=== PATIENT | male | born 1940 | race Caucasian/White ===

== ENCOUNTER 2019-12-10 09:43 | Outpatient (CLI) | payer MEDICARE, SELFPAY ==
--- NOTE | 2019-12-10 11:30 | NEURO_ITS ---
Patient Number: [id number] Impression: # Complains of numbness of hands. # Bilateral Carpal Tunnel Syndrome, right more than left. # No ulnar neuropathy. # Normal needle/EMG exam. Nerve Conduction Studies Anti Sensory Summary Table Stim Site NR Peak (ms) P-T Amp (?V) Site1 Site2 Delta-P (ms) Dist (cm) Tristen (m/s) Left Median Anti Sensory (2-3nd Digit) Wrist 4.3 5.3 Wrist 2-3nd Digit 4.3 14.0 33 Wrist 4.8 4.8 Wrist 2-3nd Digit 4.3 14.0 33 Right Median Anti Sensory (2-3nd Digit) Wrist 5.4 15.5 Wrist 2-3nd Digit 5.4 14.0 26 Wrist 5.8 13.8 Wrist 2-3nd Digit 5.4 14.0 26 Left Radial Anti Sensory (Base 1st Digit) Wrist 1.9 16.2 Wrist Base 1st Digit 1.9 0.0 Right Radial Anti Sensory (Base 1st Digit) Wrist 2.4 14.0 Wrist Base 1st Digit 2.4 0.0 Left Ulnar Anti Sensory (5th Digit) Wrist 3.1 32.2 Wrist 5th Digit 3.1 14.0 45 Right Ulnar Anti Sensory (5th Digit) Wrist 3.0 40.5 Wrist 5th Digit 3.0 14.0 47 Motor Summary Table Stim Site NR Onset (ms) O-P Amp (mV) Site1 Site2 Delta-0 (ms) Dist (cm) Tristen (m/s) Left Median Motor (Abd Poll Brev) Wrist 4.4 1.2 Elbow Wrist 5.4 30.0 56 Elbow 9.8 1.0 Right Median Motor (Abd Poll Brev) Wrist 4.5 1.8 Elbow Wrist 5.4 29.0 54 Elbow 9.9 1.0 Left Ulnar Motor (Abd Dig Minimi) Wrist 2.7 4.7 A Elbow Wrist 5.4 29.0 54 A Elbow 8.1 3.6 Right Ulnar Motor (Abd Dig Minimi) Wrist 3.0 5.4 A Elbow Wrist 5.8 31.0 53 A Elbow 8.8 4.0 F Wave Studies NR F-Lat (ms) L-R F-Lat (ms) Left Median (Mrkrs) (Abd Poll Brev) 31.09 0.27 Right Median (Mrkrs) (Abd Poll Brev) 31.35 0.27 Left Ulnar (Mrkrs) (Abd Dig Min) 31.41 1.51 Right Ulnar (Mrkrs) (Abd Dig Min) 32.91 1.51 EMG Side Muscle Nerve Root Ins Act Fibs Amp Dur Recrt Comment Right 1stDorInt Ulnar C8-T1 Nml Nml Nml Nml Nml Right Ext Indicis Radial (Post Int) C7-8 Nml Nml Nml Nml Nml Right Ext Digitorum Radial (Post Int) C7-8 Nml Nml Nml Nml Nml Right BrachioRad Radial C5-6 Nml Nml Nml Nml Nml Right PronatorTeres Median C6-7 Nml Nml Nml Nml Nml Right Abd Poll Brev Median C8-T1 Nml Nml Nml Nml Nml Left 1stDorInt Ulnar C8-T1 Nml Nml Nml Nml Nml Left Ext Indicis Radial (Post Int) C7-8 Nml Nml Nml Nml Nml Left Ext Digitorum Radial (Post Int) C7-8 Nml Nml Nml Nml Nml Left BrachioRad Radial C5-6 Nml Nml Nml Nml Nml Left PronatorTeres Median C6-7 Nml Nml Nml Nml Nml Left Abd Poll Brev Median C8-T1 Nml Nml Nml Nml Nml Right ABD Dig Min Ulnar C8-T1 Nml Nml Nml Nml Nml Left ABD Dig Min Ulnar C8-T1 Nml Nml Nml Nml Nml MTDD
== END 2019-12-10 09:44 | disposition home or self-care (01) ==
PROVIDERS: PCP Family Medicine; Visit Provider Family Medicine
DX: R20.0 Anesthesia of skin (principal); G56.03 Carpal tunnel syndrome, bilateral upper limbs
CPT/HCPCS: 95886; 95911

== ENCOUNTER 2020-05-21 11:22 | Emergency (ER) | payer MEDICARE, SELFPAY ==
[2020-05-21 11:27] VITALS: BP 107/51; PULSE 72; RESP 15; TEMP 36.8; O2SAT 95
--- NOTE | 2020-05-21 11:28 | ED.DIZZY ---
HPI - Dizziness General Chief Complaint: Dizziness Stated Complaint: Dizzy History of Present Illness HPI Narrative: 79 yo presents from home for dizziness and congestion. He reports that he has had some mild congestion for the past few days. This morning the congestion was worse. Exacerbated by lying down. He also had some dizziness, which he is not able to further characterize. This has resolve. He also reports a mild posterior headache. He had his second COVID-19 vaccination yesterday. Related Data Allergies Allergy/AdvReac Type Severity Reaction Status Date / Time Penicillins Allergy Unknown Unknown Verified 05/21/20 11:30 Review of Systems Review of Systems: All systems reviewed & are unremarkable except as noted in HPI and below Constitutional: Constitutional: Denies chills, Denies fever(s) and Denies weakness Eyes: Eyes: Reports no additional eye complaints ENT: Reports dizziness, Reports nasal congestion and Denies sore throat Cardiovascular: Cardiovascular: Denies chest pain Respiratory: Respiratory: Denies dyspnea Gastrointestinal: Gastrointestinal: Denies abdominal pain and Denies nausea Musculoskeletal: Musculoskeletal: Reports myalgias Neurologic: Reports dizziness, Denies syncope, Reports headache(s) and Denies weakness [facility] Past Medical History Medical History 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 Surgical History Surgical History Chronic neck pain with history of cervical spinal surgery Status post bilateral hip replacements Status post knee replacement Family History Family History Father Family history of Alzheimer's disease Social History Social History Years smoked: 30 Smoking status: Former smoker Tobacco type: cigarettes and cigars Second hand tobacco smoke exposure: No Smoking end date: 03/19/76 Alcohol intake: never Substance use: never Substance use type: does not use Gender identity (if verbalized by the patient): Male Exam Const: General: no acute distress and alert Orientation/consciousness: patient oriented x3 HENMT: Head: normal to inspection Ears: Abnormal EAC present cerumen impaction on the right and external ear abnormal Face and sinus: sinuses nontender Eyes: Conjunctivae: conjunctivae normal Pupils: Equal, round and reactive pupils present EOM: EOMs intact bilaterally Neck: Neck: normal visual inspection and no lymphadenopathy Chest: Chest palpation & inspection: no tenderness Resp: Effort & Inspection: normal respiratory effort Auscultation: clear to auscultation bilaterally, no rales, no rhonchi and no wheezes Cardio: Jugular venous distension: no JVD Rate: regular rate Rhythm: regular rhythm Heart sounds: no murmurs GI: Inspection: non-distended GI Palp: Yes Soft to palpation and No Tenderness to palpation present (GI) Skin: General skin exam: normal color Neuro: General: patient oriented x3, moves all extremities, no focal motor deficits and CN's II-XI intact bilaterally Cranial nerves: Yes Nystagmus not present Speech: normal speech Extrem: General: no edema Psych: Appearance: well kempt Affect: normal affect Course Vital Signs Vital signs: Vital Signs Temperature 36.8 C 05/21/20 11:27 Pulse Rate 72 05/21/20 11:27 Respiratory Rate 15 05/21/20 11:27 Blood Pressure 107/51 L 05/21/20 11:27 Pulse Oximetry 95 05/21/20 11:27 Temperature 36.8 C 05/21/20 11:27 Pulse Rate 63 05/21/20 12:00 Respiratory Rate 16 05/21/20 12:00 Blood Pressure 103/60 05/21/20 12:00 Pulse Oximetry 94 05/21/20 12:00 MDM - Dizziness Differential Diagnosis Differential diagnosis: Likely benign paroxysmal positional vertigo and other (vaccine reaction, dehydrat
--- NOTE | 2020-05-21 11:43 | ECG_ITS ---
Measurements Intervals [place] Rate: 68 P: 47 NH: 224 QRS: -54 QRSD: 137 T: 78 QT: 390 QTc: 415 Interpretive Statements SINUS RHYTHM WITH FIRST DEGREE AV BLOCK LEFT AXIS DEVIATION INTRAVENTRICULAR CONDUCTION DELAY DELAYED PRECORDIAL R/S TRANSITION BORDERLINE ST-T WAVE ABNORMALITY- HIGH LATERAL LEADS ABNORMAL ECG Electronically Signed On 05-21-2020 11:50:02 HEALTH BENEFITS SPECIALIST by Clay Segura D.O.
[2020-05-21] MEDS: ACETAMINOPHEN 500 MG TABLET 1000 MG PO (11:45)
[2020-05-21] MEDS: SODIUM CHLORIDE 0.9% IV 500 ML 999 ML IV CONT (11:45)
[2020-05-21] MEDS: MECLIZINE HCL 25 MG TABLET PO (11:45)
[2020-05-21 11:50] LABS: Basophils Absolute Auto 0.1 K/mm3 (0.0-0.1); Basophils Percent Auto 0.7 % (0.2-1.2); Eosinophils Absolute Auto 0.3 K/mm3 (0-0.3); Eosinophils Percent Auto 4.2 % (0-4.4); Hematocrit 38.2 % (42.0-52.0); Hemoglobin 12.6 g/dL (14.0-18.0); Immature Granulocyte Absolute 0.02 K/mm3 (0.00-0.031); Immature Granulocyte Percent A 0.3 % (0-0.5); Lymphocytes Absolute Auto 1.34 K/mm3 (0.9-3.2); Lymphocytes Percent Auto 20.1 % (18.3-44.2); Mean Platelet Volume 9.6 fl (7.4-10.4); Monocytes Absolute Auto 0.5 K/mm3 (0.1-0.6); Neutrophils Absolute Auto 4.5 K/mm3 (1.3-6.7); Neutrophils Percent Auto 67.7 % (45.5-73.1); Platelet Count Result 275 k/mm3 (150-375); Red Cell Distribution Width 13.2 % (11.5-14.5); White Blood Count 6.7 K/mm3 (4.5-10.0)
[2020-05-21 12:00] VITALS: BP 103/60; PULSE 63; RESP 16; O2SAT 94
[2020-05-21 12:02] LABS: Anion Gap 5 mmol/L (8-16); Blood Urea Nitrogen 17 mg/dL (9-20); Calcium 8.5 mg/dL (8.4-10.2); Carbon Dioxide 25 mmol/L (22-30); Chloride 107 mmol/L (98-107); Estimated CRCL calculation 52 ml/min; Estimated Glomerular Filt Rate 58; Glucose 137 mg/dL (75-110); Potassium 4.5 mmol/L (3.4-5.0); Sodium 137 mmol/L (137-145)
[2020-05-21 12:30] VITALS: BP 101/52; PULSE 64; RESP 16; O2SAT 94
[2020-05-21 13:08] VITALS: BP 96/60; PULSE 62; RESP 16; O2SAT 96
== END 2020-05-21 13:33 | disposition home or self-care (01) ==
PROVIDERS: Emergency Provider Emergency Medicine; PCP Family Medicine
DX: R42 Dizziness and giddiness (principal); H61.21 Impacted cerumen, right ear; I11.9 Hypertensive heart disease without heart failure; Z96.643 Presence of artificial hip joint, bilateral; Z96.659 Presence of unspecified artificial knee joint; Z87.891 Personal history of nicotine dependence; I44.0 Atrioventricular block, first degree; I45.9 Conduction disorder, unspecified; R94.31 Abnormal electrocardiogram [ECG] [EKG]
CPT/HCPCS: 36415; 69209; 80048; 85025; 93005; 96360; 99283; A9270; J7040

== ENCOUNTER 2021-04-27 12:39 | Emergency (ER) | payer MEDICARE, SELFPAY ==
--- NOTE | ~2021-04-27 | XR_ITS ---
EXAMINATION: XR cervical spine 4-5V EXAM DATE: 04/27/2021 14:19 INDICATION: posterior neck pain s/p fall 4 days ago. Initial encounter. TECHNIQUE: Cervical spine frontal, lateral, lateral swimmers, and open-mouth odontoid projections. C omparison is made to prior examination from 08/26/2010. FINDINGS: There are no acute fractures identified. There is mild reversal of the normal cervical lord osis which may be positional degenerative, or spasm, similar appearance on prior study 2010. Cervical fusion hardware at C6-7. Large endplate osteophytes from C3-5. The odontoid process is intact. The lateral masses of C1 line up with C2. Prevertebral soft tissue and pre-dens space are within normal l imits. Lung apices are clear. Paraspinal soft tissue is unremarkable. Osseous fusion of the C5-6 vert ebral bodies. Moderate to severe cervical arthropathy. IMPRESSION: 1. Mild reversal normal cervical lordosis. 2. Moderate to severe arthropathy. 3. Intact fusion, no fracture suspected. Reviewed, dictated and finalized at location B. R SHAPER
[2021-04-27 12:50] VITALS: BP 119/48; PULSE 80; RESP 16; TEMP 36.7; O2SAT 99
--- NOTE | 2021-04-27 13:55 | ED.NECK ---
HPI - Neck Pain/Injury General Chief Complaint: Neck Pain/Injury Stated Complaint: neck pain Time Seen by Provider: 04/27/21 13:55 Source: patient and RN notes reviewed Mode of arrival: ambulatory Limitations: no limitations History of Present Illness HPI Narrative: 80-year-old male presented for complaint of posterior lower neck pain for approximately 4 days. Pain worse with flexion/extension. He states he had a fall at the onset, fell forward off of a curb into the snow landing on his outstretched hands. He denies hitting his head or loss of consciousness. He was seen by his PCP yesterday who instructed him to get evaluated with an x-ray. He denies increased pain with turning his head, endorses full range of motion to his arms, denies numbness, tingling, weakness to the upper extremities. He endorses a history of multiple left-sided fractures at age 35, takes tramadol daily. Related Data Home Medications Medication Instructions Recorded Confirmed qtwvromg-dwh-bjyft acid 300 1 tablet PO DAILY 09/28/20 04/27/21 mcg-lycopene 600 mcg-lutein 300 mcg tablet Allergies Allergy/AdvReac Type Severity Reaction Status Date / Time Penicillins Allergy Unknown Unknown Verified 04/27/21 12:42 Review of Systems Review of Systems: CONSTITUTIONAL: Denies body aches, fever, chills, or sweats. EYES: Denies visual changes, redness, or discharge. ENT: Denies rhinorrhea, congestion, sore throat, or otalgia. CARDIOVASCULAR: Denies chest pain, palpitations, or edema. RESPIRATORY: Denies cough or dyspnea. GASTROINTESTINAL: Denies abdominal pain, nausea, vomiting, or diarrhea. GENITOURINARY: Denies dysuria or hematuria. SKIN: Denies rash, itching, or wounds. MUSCULOSKELETAL: Endorses neck pain NEUROLOGIC: Denies headache, numbness, tingling, or weakness. PSYCH: Denies depression or anxiety. All systems reviewed & are unremarkable except as noted in HPI and below PMFSH Past Medical History Medical History 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 Surgical History Surgical History Chronic neck pain with history of cervical spinal surgery Status post bilateral hip replacements Status post knee replacement Family History Family History Father Family history of Alzheimer's disease Social History Social History Years smoked: 30 Tobacco type: cigarettes and cigars Second hand tobacco smoke exposure: No Smoking end date: 03/19/76 Alcohol intake: never Substance use: never Substance use type: does not use Gender identity (if verbalized by the patient): Male Sexual Orientation (if Verbalized by the Patient): Straight or Heterosexual Comments At time of signature, I have reviewed and agree with nursing past medical, surgical, social and family history unless otherwise noted. Please see nursing chart for further information. There is no relevant family history pertinent to the presenting complaint Exam Narrative: GENERAL: Well-appearing, well-nourished, and in no acute distress. HEAD: Normocephalic, atraumatic. EYES: EOMI. No redness or drainage. Conjunctivae normal. ENT: Mucous membranes pink and moist. NECK: Normal AROM but endorses pain with flexion/extension. Supple. CHEST: No respiratory distress. Clear to auscultation. HEART: Regular rate and rhythm. No murmur appreciated. Normal peripheral pulses. ABDOMEN: Soft, nontender, nondistended, normal active bowel sounds. MUSCULOSKELETAL:No vertebral point tenderness or paraspinal tenderness with palpation; pain reported with flexion/extension of neck at c6-7 EXTREMITIES: Normal range of motion. No edema. Institution Director equal strong SKIN: Warm, dry, no rash. Capillary refill normal. Normal skin turgor. NEURO: No focal deficits
== END 2021-04-27 15:01 | disposition home or self-care (01) ==
PROVIDERS: Emergency Provider Nurse Practitioner Family; PCP Family Medicine
DX: M54.2 Cervicalgia (principal); Z87.891 Personal history of nicotine dependence; I11.9 Hypertensive heart disease without heart failure; Z96.643 Presence of artificial hip joint, bilateral; Z96.659 Presence of unspecified artificial knee joint
CPT/HCPCS: 72050; 99213; G0463

== ENCOUNTER 2021-08-17 13:49 | Outpatient (CLI) | payer MEDICARE, SELFPAY ==
--- NOTE | ~2021-08-17 | XR_ITS ---
EXAMINATION: XR hip LT min 3V w AP pelvis DATE: 08/17/2021 14:29 INDICATION: Left hip pain TECHNIQUE: Anteroposterior view of the pelvis and anteroposterior, frog leg and cross-table lateral v iews of the left hip were obtained. COMPARISON: None. FINDINGS: No acute fracture. Bipolar type left hip hemiarthroplasty which appears well seated in the femur with no periprosthetic lucency to suggest loosening. There is however osteolysis and remodeling of the sainz perior left acetabulum with likely secondary superolateral migration of the femoral head component of the hemiarthroplasty with significant lateral uncovering of the head of the component. Lucency overl rivera the lateral margin of the remodeled acetabulum likely representing prominent synovitis versus cy stic change. A couple large heterotopic ossifications extending between the greater trochanter and th e lateral margin of the acetabulum. Additional heterotopic ossification in the soft tissues along the medial aspect of the proximal femoral diaphysis. Mild right hip osteoarthritis. Moderate to severe l ower lumbar spondylosis. IMPRESSION: 1. Left total hip arthroplasty with osteolysis and remodeling of the superior superolateral left acet abulum resulting in significant superolateral migration of the femoral head component of the hemiarth roplasty but without kayla dislocation. Reviewed, dictated and finalized at location B. IMPRESSION: 1. Left total hip arthroplasty with osteolysis and remodeling of the superior s uperolateral left acetabulum resulting in significant superolateral migration o f the femoral head component of the hemiarthroplasty but without kayla dislocat ion.
--- NOTE | ~2021-08-17 | XR_ITS ---
EXAMINATION: XR knee LT min 4V DATE: 08/17/2021 14:29 INDICATION: Left knee pain. TECHNIQUE: 4 views of left knee were obtained. COMPARISON: Left knee radiographs 08/11/2009 FINDINGS: There is a total left knee arthroplasty in near-anatomic alignment. No periprosthetic lucen cy to suggest loosening or infection. Partially visualized is an old healed fracture of femoral diaph ysis. Again seen is a small bone fragment in the expected area of patella. No knee joint effusion. IMPRESSION: 1. Total left knee arthroplasty in near-anatomic alignment. Reviewed, dictated and finalized at location A.
== END 2021-08-17 13:50 | disposition home or self-care (01) ==
PROVIDERS: PCP Family Medicine; Visit Provider Physician Assistant
DX: M47.816 Spondylosis without myelopathy or radiculopathy, lumbar region (principal); M16.11 Unilateral primary osteoarthritis, right hip; Z96.652 Presence of left artificial knee joint
CPT/HCPCS: 73502; 73564

== ENCOUNTER 2022-09-14 20:45 | Emergency (ER) | payer MEDICARE, SELFPAY ==
--- NOTE | ~2022-09-14 | CT_ITS ---
EXAMINATION: CT brain wo con DATE: 09/14/2022 21:31 INDICATION: head injury . TECHNIQUE: Computed tomography (CT) of the head was performed without intravenous contrast. The mA wa s adjusted according to patient size. Iterative reconstruction technique was employed. The dose-lengt h product was 605.33 mGy-cm. COMPARISON: 09/17/2013. FINDINGS: No acute intracranial hemorrhage or extra-axial fluid collection. No hydrocephalus, mass, or herniation. No acute ischemic infarct. Unremarkable dural venous sinus attenuation. No acute osseous abnormality. Trace right mastoid fluid, bilateral inferior frontal, ethmoid, sphenoid and maxillary mucosal thicke grabiel, the remaining aerated spaces are clear. Moderate atrophy and mild chronic white matter change. Atherosclerotic intracranial calcification. Ri ght lens replacement IMPRESSION: No acute intracranial process. Reviewed, dictated and finalized at location K.
--- NOTE | ~2022-09-14 | CT_ITS ---
EXAMINATION: CT facial & cervical spine wo DATE: 09/14/2022 21:34 INDICATION: fall, trauma TECHNIQUE: Computed tomography (CT) of the maxillofacial region and cervical spine was performed with out intravenous contrast. Automated exposure control and iterative reconstruction technique were empl oyed. The dose-length product was 631.17 mGy-cm. COMPARISON: CT C-spine 09/17/2013; x-ray C-spine 04/27/2021 FINDINGS: CERVICAL: Vertebral Body Alignment: Reversed lordosis centered at C5-6. Stable 3 mm anterolistheses at C4-5 and C7-T1. Craniocervical and atlantoaxial alignment: Moderate degenerative change. Alignment intact. Osseous structures/fracture: No evidence of a lytic or blastic process in the visualized spine. No e vidence of acute fracture. Uncomplicated ACDF hardware at C6-7. Osseous fusion at C5-6. Cervical soft tissues: The paraspinal soft tissues planes are maintained. 2.1 cm left thyroid nodule with calcification. Dependent atelectasis. Left apical calcified granuloma. Degenerative changes: Degenerative changes, without severe neural foraminal or central canal narrowin g. Large bridging anterior osteophytes between C3 and C5, with pseudoarthrosis formation. FACE: Mild motion artifact. Soft Tissues: No significant superficial soft tissue swelling. Facial bones: No acute fracture. No lytic or blastic process. Eyes: The globes are intact. Right lens replacement. The soft tissue planes of the orbits are mainta ined. Paranasal Sinuses: Trace right mastoid fluid. Bilateral inferior frontal, ethmoid, sphenoid, and maxi llary sinus mucosal thickening. Foreign Bodies: No radiopaque foreign bodies. Other Findings: None. IMPRESSION: No acute fracture or traumatic malalignment in the cervical spine. No acute facial bone fracture. 2.1 cm calcified left thyroid nodule, consider outpatient thyroid ultrasound for further characteriza tion. Reviewed, dictated and finalized at location K. IMPRESSION: No acute fracture or traumatic malalignment in the cervical spine. No acute fac ial bone fracture. 2.1 cm calcified left thyroid nodule, consider outpatient thyroid ultrasound fo r further characterization.
[2022-09-14 20:47] VITALS: BP 138/59; PULSE 76; RESP 18; TEMP 36.1; O2SAT 96
--- NOTE | 2022-09-14 21:58 | ED.FALL ---
HPI - Fall General Chief Complaint: Fall Stated Complaint: fall Time Seen by Provider: 09/14/22 20:48 History of Present Illness HPI Narrative: 81-year-old male presented emergency department for evaluation after a ground-level fall. Neighbor states that the patient was bending over to work with a garden hose and then stood and ultimately fell forward striking his face and arm on the rocks. Patient denies any loss of consciousness. Neighbors were there to help assist him to a lawn chair and EMS was called. Related Data Home Medications Medication Instructions Recorded Confirmed qzftmyih-fhk-wphyu acid 300 1 tablet PO DAILY 09/28/20 04/04/22 mcg-lycopene 600 mcg-lutein 300 mcg tablet (Men 50 Plus Multivitamin) Allergies Allergy/AdvReac Type Severity Reaction Status Date / Time Penicillins Allergy Unknown Unknown Verified 09/14/22 20:52 Review of Systems Review of Systems: All systems reviewed & are unremarkable except as noted in HPI and below PMFSH Past Medical History Medical History Obesity 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 Surgical History Surgical History Chronic neck pain with history of cervical spinal surgery Complication of artificial joint L JESSIE removal, abx spacer, ORIF Status post bilateral hip replacements Status post knee replacement Family History Family History Father Family history of Alzheimer's disease Social History Social History Years smoked: 30 Smoking status: Former smoker Tobacco type: cigarettes and cigars Second hand tobacco smoke exposure: No Smoking end date: 03/19/76 Alcohol intake: never Substance use: never Substance use type: does not use Living arrangements: with family Occupation/Education: retired Gender identity (if verbalized by the patient): Male Sexual Orientation (if Verbalized by the Patient): Straight or Heterosexual Exam Narrative: APPEARANCE: Well appearing, no pain, no distress, well-nourished. HEAD: normocephalic, contusions to nasal bridge and abrasions to forehead and nasal bridge. EYES: PERRLA/EOMI, conjunctivae clear. NOSE: Normal no drainage EARS:TMS clear with good light reflex. THROAT: Pharynx clear, no exudate. NECK: Supple. No adenopathy, no masses. RESPIRATORY: Airway patent, respirations nonlabored. Clear to auscultation bilaterally, no rales, rhonchi, wheezing. CARDIOVASCULAR: Regular rate and rhythm without murmurs rubs or gallops. ABDOMINAL: Soft, nontender, nondistended, normal bowel sounds MUSCULOSKELETAL: Moves all extremities. Strength/ROM intact, No edema, No calf tenderness. NEURO: Alert. Cranial nerves II through XII intact. Grossly intact SKIN: Extensive skin tear on the left forearm PSYCHIATRIC: Normal affect/mood. Course Course Emergency Course: 81-year-old male presented to ED for evaluation after having a ground-level fall. Patient did have multiple skin tears that were repaired. Patient had head face and neck CTs ordered due to to the fall. No acute abnormalities were noted. Patient denies any complaints and was able to ambulate at his baseline. Patient and family were updated on the results of the work-up and treatment plan. All questions and concerns were addressed. Patient was well-appearing at time of discharge. Vital Signs Vital signs: Vital Signs Temperature 97 F L 09/14/22 20:47 Pulse Rate 76 09/14/22 20:47 Respiratory Rate 18 09/14/22 20:47 Blood Pressure 138/59 L 09/14/22 20:47 Pulse Oximetry 96 09/14/22 20:47 Oxygen Delivery Room Air 09/14/22 20:47 Temperature 98 F 09/14/22 22:38 Pulse Rate 79 09/14/22 22:38 Respiratory Rate 19 09/14/22 22:38 Blood Pressure 134/75 09/14/22 22:38 Pulse Oximetry
[2022-09-14 22:38] VITALS: BP 134/75; PULSE 79; RESP 19; TEMP 36.6; O2SAT 98
== END 2022-09-14 22:39 | disposition home or self-care (01) ==
PROVIDERS: Emergency Provider Emergency Medicine; PCP Family Medicine
DX: S00.33XA Contusion of nose, initial encounter (principal); S51.811A Laceration without foreign body of right forearm, initial encounter; S00.81XA Abrasion of other part of head, initial encounter; I11.9 Hypertensive heart disease without heart failure; E66.9 Obesity, unspecified; Z68.33 Body mass index [BMI] 33.0-33.9, adult; Z87.891 Personal history of nicotine dependence; W18.39XA Other fall on same level, initial encounter
CPT/HCPCS: 70450; 70486; 72125; 99284

== ENCOUNTER 2022-09-25 12:53 | Outpatient (CLI) | payer MEDICARE, SELFPAY ==
--- NOTE | ~2022-09-25 | US_ITS ---
EXAMINATION: US thyroid DATE: 09/25/2022 14:08 INDICATION: Nontoxic single thyroid nodule. TECHNIQUE: Multiple ultrasound images of the thyroid were obtained. COMPARISON: None. FINDINGS: The right thyroid lobe measures 3.7 x 1.9 x 1.7 cm. The left thyroid lobe measures 4.4 x 2.6 x 2.3 c m. In the right thyroid lobe, there is a 9 mm solid, hypoechoic, wider than tall nodule with smooth margin without echogenic foci (TR4). In the left thyroid lobe, there is a 1.9 cm predominantly solid, hypoechoic, wider than tall nodule with ill-defined margin without echogenic foci (TR4). IMPRESSION: 1. Multinodular goiter. Consider ultrasound-guided fine-needle aspiration of the 1.9 cm left thyroid nodule if clinically indicated given the patient's age. Reviewed, dictated and finalized at location E. IMPRESSION: 1. Multinodular goiter. Consider ultrasound-guided fine-needle aspiration of th e 1.9 cm left thyroid nodule if clinically indicated given the patient's age.
== END 2022-09-25 12:54 | disposition home or self-care (01) ==
PROVIDERS: PCP Family Medicine; Visit Provider Family Medicine
DX: E04.2 Nontoxic multinodular goiter (principal)
CPT/HCPCS: 76536

== ENCOUNTER 2022-12-04 12:27 | Outpatient (CLI) | payer MEDICARE, SELFPAY ==
--- NOTE | ~2022-12-04 | US_ITS ---
EXAMINATION: US FNA w image guidance DATE: 12/04/2022 13:56 INDICATION: Nontoxic single thyroid nodule TECHNIQUE: A time-out was performed to verify the patient's name, date of , and procedure to be performed . The procedure and its benefits and risks were discussed with the patient. Risks specifically discus sed included bleeding and infection. The patient understood the risks and agreed to proceed. The neck was prepped and draped in the usual sterile manner. 3 mL 1% lidocaine was used for local anesthesia . 6 passes were made with a 25G needle into the lesion. Appropriate needle location was documented with continuous sonographic guidance. A sterile bandage was applied. There were no immediate compli cations. FINDINGS: Grayscale ultrasound images demonstrate biopsy needles advanced into a 2.0 cm TI RADS 4 nodules in th e deep inferior left thyroid. IMPRESSION: 1. Successful ultrasound-guided fine needle aspiration of a 2.0 cm TI RADS 4 left thyroid nodule. Reviewed, dictated and finalized at location A. IMPRESSION: 1. Successful ultrasound-guided fine needle aspiration of a 2.0 cm TI RADS 4 l eft thyroid nodule.
== END 2022-12-04 12:28 | disposition home or self-care (01) ==
LOC: ANHIMG 12:28
PROVIDERS: PCP Family Medicine; Visit Provider Family Medicine
DX: E04.1 Nontoxic single thyroid nodule (principal)
CPT/HCPCS: 10005; 88173; 88305

== ENCOUNTER 2023-05-30 12:39 | Outpatient (CLI) | payer MEDICARE, SELFPAY ==
--- NOTE | ~2023-05-30 | US_ITS ---
EXAMINATION: US renal BI DATE: 05/30/2023 13:06 INDICATION: Chronic kidney disease, stage III TECHNIQUE: Multiple ultrasound grayscale images of the kidneys were obtained. COMPARISON: None. FINDINGS: The right kidney measures 10.1 x 5.1 x 4.5 cm. The left kidney measures 9.8 x 5.0 x 4.6 cm. The kidne ys demonstrate normal parenchymal echogenicity. There is a 4.7 cm cyst in left kidney. There is no hy dronephrosis. The bladder is not well distended. IMPRESSION: 1. Normal kidney sizes. No hydronephrosis. Reviewed, dictated and finalized at location A.
== END 2023-05-30 12:40 | disposition home or self-care (01) ==
PROVIDERS: PCP Family Medicine; Visit Provider Family Medicine
DX: N18.30 Chronic kidney disease, stage 3 unspecified (principal)
CPT/HCPCS: 76775

== ENCOUNTER 2023-12-19 10:20 | Emergency (ER) | payer MEDICARE, SELFPAY ==
[2023-12-19 10:21] VITALS: BP 120/41; PULSE 78; RESP 20; TEMP 36.2; O2SAT 96
--- NOTE | 2023-12-19 10:28 | ED.FALL ---
HPI - Fall General Chief Complaint: Wound/Laceration Stated Complaint: FALL/Wound Time Seen by Provider: 12/19/23 10:28 Source: patient Mode of arrival: ambulatory Limitations: no limitations History of Present Illness HPI Narrative: Patient is 83-year-old male who presents skin tear to left patient cell into brick wall Maryellen evening. Patient has been washing it in using Neosporin and keeping covered. Reports there was a piece of skin that flaps if not covered by today. Denies any surrounding redness or drainage to wound. Related Data Home Medications Medication Instructions Recorded Confirmed [id number] 300 mcg-K 60 1 tablet PO DAILY 09/28/20 12/19/23 mcg-lycop 600 mcg-lutein 300 mcg tablet (Men 50 Plus Multivitamin) Allergies Allergy/AdvReac Type Severity Reaction Status Date / Time Penicillins Allergy Unknown Unknown Verified 12/19/23 10:40 Review of Systems Review of Systems: All systems reviewed & are unremarkable except as noted in HPI and below Constitutional: Constitutional: Denies body ache(s), Denies chills, Denies fatigue, Denies fever(s), Denies headache(s), Denies malaise and Denies weakness Eyes: Eyes: Denies blurry vision, Denies irritation and Denies loss of vision ENT: Denies otalgia, Denies headache(s), Denies nasal discharge, Denies sinus pain and Denies sore throat Cardiovascular: Cardiovascular: Denies chest pain, Denies irregular heart rhythm and Denies dyspnea Respiratory: Respiratory: Denies dyspnea Gastrointestinal: Gastrointestinal: Denies abdominal pain, Denies melena, Denies hematochezia, Denies diarrhea, Denies nausea and Denies vomiting Musculoskeletal: Musculoskeletal: Denies back pain, Denies myalgias and Denies arthralgias Integumentary/Breasts: Skin/Breast: Denies pruritus, Denies rash and Reports wounds Neurologic: Denies headache(s), Denies loss of vision and Denies weakness Psychiatric: Psychiatric: Reports no additional psychiatric complaints Endocrine: Endocrine: Denies fatigue PMFSH Past Medical History Medical History CKD (chronic kidney disease), stage III Hypertensive CKD (chronic kidney disease) Mild cognitive impairment Obesity 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 Surgical History Surgical History Chronic neck pain with history of cervical spinal surgery Complication of artificial joint L JESSIE removal, abx spacer, ORIF Status post bilateral hip replacements Status post knee replacement Family History Family History Father Family history of Alzheimer's disease Social History Social History Years smoked: 30 Smoking status: Former smoker Tobacco type: cigarettes and cigars Second hand tobacco smoke exposure: No Smoking end date: 03/19/76 Alcohol intake: never Substance use: never Substance use type: does not use Living arrangements: with family Occupation/Education: retired Gender identity (if verbalized by the patient): Male Sexual Orientation (if Verbalized by the Patient): Straight or Heterosexual Comments At time of signature, agree with nursing past medical, surgical, social and family history. There is no relevant family history pertinent to the presenting complaint. Exam Const: General: cooperative, healthy appearing, comfortable, no acute distress and well nourished Nutritional Appearance: well nourished Orientation/consciousness: patient oriented x3 Limitations: no limitations HENMT: Head: normal to inspection, normocephalic and atraumatic Ears: hearing grossly normal bilaterally and external ears normal Face/Nose/Sinus: Normal external nose present, normal facial exam and face symmetric Face and sinus: normal facial exam and face symmetric Mouth: Yes li
== END 2023-12-19 11:25 | disposition home or self-care (01) ==
PROVIDERS: Emergency Provider Nurse Practitioner Family; PCP Family Medicine
DX: S51.012A Laceration without foreign body of left elbow, initial encounter (principal); X58.XXXA Exposure to other specified factors, initial encounter; Z87.891 Personal history of nicotine dependence; I13.10 Hypertensive heart and chronic kidney disease without heart failure, with stage 1 through stage 4 chronic kidney disease, or unspecified chronic kidney disease; N18.30 Chronic kidney disease, stage 3 unspecified; E66.9 Obesity, unspecified; Z68.33 Body mass index [BMI] 33.0-33.9, adult; Z96.643 Presence of artificial hip joint, bilateral
CPT/HCPCS: 99213; G0463